=== PATIENT | female | born 1980 | race Caucasian/White ===

== ENCOUNTER 2016-11-08 05:58 | Day surgery (SDC) | payer OTHER ==
[~2016-11-08] VITALS: Ht 162.6 cm; Wt 78.0 kg
[2016-11-08] MEDS ORDERED: BUPIVACAINE-MPF/EPI 0.5% 30 ML VIAL INJ ONE (07:06)
[2016-11-08] MEDS ORDERED: MORPHINE SULFATE 4 MG/ML SYR IM/IVP PRN (08:15)
[2016-11-08] MEDS ORDERED: ONDANSETRON 4 MG/2 ML VIAL IVP PRN ×2 (08:15→09:20)
[2016-11-08] MEDS ORDERED: ACETAMINOPHEN/CODEINE 300/30MG 1 TAB PO PRN (08:15)
[2016-11-08] MEDS ORDERED: IBUPROFEN 800 MG TAB PO PRN (08:15)
[2016-11-08] MEDS ORDERED: ONDANSETRON 4 MG/2 ML VIAL IVP ONE (08:30)
[2016-11-08] MEDS ORDERED: NEOSTIGMINE 1:1000 10 MG/10 ML VIAL IM ONE (08:30)
[2016-11-08] MEDS ORDERED: DEXAMETHASONE 4 MG/ML VIAL IVP ONE (08:30)
[2016-11-08] MEDS ORDERED: PROPOFOL 200 MG/20 ML VIAL IV ONE (08:30)
[2016-11-08] MEDS ORDERED: SEVOFLURANE 250 ML BTL INH ONE (08:30)
[2016-11-08] MEDS ORDERED: GLYCOPYRROLATE 0.2 MG/ML VIAL IV ONE (08:30)
[2016-11-08] MEDS ORDERED: ROCURONIUM 50 MG/5 ML VIAL IV ONE (08:30)
[2016-11-08] MEDS ORDERED: SUCCINYLCHOLINE CHLORIDE 200 MG/10 ML VIAL IV ONE (08:30)
[2016-11-08] MEDS ORDERED: MIDAZOLAM 2 MG/2 ML VIAL ONE (08:32)
[2016-11-08] MEDS ORDERED: MEPERIDINE 50 MG/ML SYR ONE (08:33)
[2016-11-08] MEDS ORDERED: fentaNYL 0.05 MG/ML VIAL ONE (08:33)
[2016-11-08] MEDS ORDERED: MEPERIDINE 25 MG/ML SYR IVP PRN (09:20)
[2016-11-08] MEDS ORDERED: diphenhydrAMINE 50 MG/ML VIAL IVP PRN (09:20)
[2016-11-08] MEDS ORDERED: HYDROmorphone 1 MG/ML AMP IVP PRN (09:20)
[2016-11-08] MEDS ORDERED: LACTATED RINGERS 1,000 ML IV SCH (09:20)
[2016-11-08] MEDS ORDERED: HYDROmorphone PFS 2 MG/ML SYR ONE (09:51)
== END 2016-11-08 12:05 | disposition home or self-care (01) ==
LOC: MDS 05:58 → MMU 06:02 → MDS 12:05
PROVIDERS: ATTEND Obstetrics & Gynecology
DX: N73.6 Female pelvic peritoneal adhesions (postinfective) (principal); Z98.51 Tubal ligation status
CPT/HCPCS: 58660; 82374; J0330; J0690; J1100; J2250; J2405; J2704; J2710; J3010; J3490; J7060; J1170; J2175